=== PATIENT | female | born 1975 | race Caucasian/White ===

== ENCOUNTER 2017-06-02 07:37 | Day surgery (SDC) | payer MEDICAID ==
[2017-05-30 11:19] LABS: HEMATOCRIT 38.7 % (34.6-47.8); HEMOGLOBIN 12.9 g/dL (11.7-16.4); WHITE BLOOD COUNT 10.4 x10^3/uL (3.4-10)
[2017-05-30 11:30] LABS: BLOOD UREA NITROGEN 12 mg/dL (7-18)
[~2017-06-02] VITALS: Ht 172.7 cm; Wt 96.4 kg
[~2017-06-02 07:37] MED LIST: ASPI-496 PO; ATOR-2 PO; CALC200T3 PO; HYDR-3240 PO; LEVO100T5 PO; LISI5TAB7 PO; OMEG1CAP23 PO; OXYC5CAP2 PO; PENT400T2 PO; TRAM50TA2 PO
[2017-06-02] MEDS ORDERED: SODIUM CHLORIDE 0.9% 1,000 ML IV SCH (08:07)
[2017-06-02 08:28] VITALS: BP 138/74
[2017-06-02] MEDS ORDERED: CEFAZOLIN PMX 2GM/50ML 50 ML IVPB ONE (08:30)
[2017-06-02] MEDS ORDERED: PROTAMINE SULFATE 10 MG/ML, 25ML ONE (09:21)
[2017-06-02] MEDS ORDERED: MIDAZOLAM 1 MG/ML, 5ML ONE (09:21)
[2017-06-02] MEDS ORDERED: FENTANYL PF 100 MCG/2ML ONE (09:22)
[2017-06-02] MEDS ORDERED: FLUMAZENIL 0.1 MG/1 ML, 5ML ONE (09:22)
[2017-06-02] MEDS ORDERED: NITROGLYCERIN 5 MG/ML, 10ML ONE (09:22)
[2017-06-02] MEDS ORDERED: NALOXONE 1 MG/ML, 2ML ONE (09:22)
[2017-06-02] MEDS ORDERED: HEPARIN 1,000 UNITS/ML, 10ML ONE (09:22)
[2017-06-02] MEDS ORDERED: LIDOCAINE 2%, 20ML ONE (09:41)
[2017-06-02] MEDS ORDERED: VISIPAQUE 270 MG/ML, 150ML BOTTLE ONE (10:00)
== END 2017-06-02 13:10 ==
LOC: OUT 07:37
PROVIDERS: ATTEND Surgery
DX: I73.9 Peripheral vascular disease, unspecified (principal); I10 Essential (primary) hypertension; E78.5 Hyperlipidemia, unspecified; Z98.890 Other specified postprocedural states; Z87.891 Personal history of nicotine dependence
CPT/HCPCS: 36200; 36415; 75625; 75716; 76937; 80048; 85025; 99156; 99157; C1751; C1769; C1894; J2250; J3010; J3490; J7030; Q9966; 75630; J1644; J2720; J2310

== ENCOUNTER 2017-06-30 07:30 | Inpatient (IN) | payer MEDICAID ==
[2017-06-24 12:39] VITALS: BP 133/83
[~2017-06-30] VITALS: Ht 172.7 cm; Wt 105.5 kg
[2017-06-30] MEDS ORDERED: HEPARIN 1,000 UNITS/ML, 30ML ONE (09:03)
[2017-06-30] MEDS ORDERED: ALBUMIN HUMAN 5% 500 ML ONE (09:04)
[2017-06-30] MEDS ORDERED: LACTATED RINGERS 1,000 ML IV SCH (09:48)
[2017-06-30] MEDS ORDERED: BACITRACIN 50,000 UNIT ONE (10:02)
[2017-06-30] MEDS ORDERED: PROTAMINE SULFATE 10 MG/ML, 5ML ONE (10:02)
[2017-06-30] MEDS ORDERED: HEPARIN 1,000 UNITS/ML, 10ML ONE (10:02)
[2017-06-30] MEDS ORDERED: THROMBIN 20,000 UNIT VIAL TP ONE (10:02)
[2017-06-30] MEDS ORDERED: MIDAZOLAM 1 MG/ML, 2ML ONE (10:11)
[2017-06-30] MEDS ORDERED: FENTANYL PF 500 MCG/10ML ONE (10:11)
[2017-06-30 10:20] LABS: HCG UR OBC PASS
[2017-06-30] MEDS ORDERED: BUPIVACAINE/PF 0.25% ONE (10:27)
[2017-06-30] MEDS ORDERED: PROPOFOL 10 MG/ML, 20ML ONE (10:37)
[2017-06-30] MEDS ORDERED: PHENYLEPHRINE 10 MG/ML ONE (10:37)
[2017-06-30] MEDS ORDERED: ROCURONIUM 10 MG/ML ONE (10:37)
[2017-06-30] MEDS ORDERED: DEXAMETHASONE 4 MG/ML, 1ML ONE (10:37)
[2017-06-30] MEDS ORDERED: KETAMINE 10 MG/ML, 20ML ONE ×2 (10:37→11:12)
[2017-06-30] MEDS ORDERED: CEFAZOLIN 1,000 MG ONE (10:37)
[2017-06-30] MEDS ORDERED: NEOSTIGMINE 1 MG/ML, 10ML ONE (10:37)
[2017-06-30] MEDS ORDERED: ONDANSETRON 2MG/ML, 2ML ONE (10:37)
[2017-06-30] MEDS ORDERED: ONDANSETRON 2MG/ML, 2ML IVPush PRN (11:30)
[2017-06-30] MEDS ORDERED: MIDAZOLAM 1 MG/ML, 2ML IV PRN (11:30)
[2017-06-30] MEDS ORDERED: FENTANYL PF 100 MCG/2ML IV PRN (11:30)
[2017-06-30] MEDS ORDERED: ALBUTEROL SULFATE 2.5 MG/3 ML NPPB PRN (11:30)
[2017-06-30] MEDS ORDERED: PROMETHAZINE 25 MG/ML, 1ML IV PRN (11:30)
[2017-06-30] MEDS ORDERED: MEPERIDINE/PF 25MG/0.5ML IVPush PRN (11:30)
[2017-06-30] MEDS ORDERED: OXYcodone 5 MG/5 ML ORAL.SOL UDC PO PRN (11:30)
[2017-06-30] MEDS ORDERED: hydrALAzine 20 MG/ML, 1ML IV PRN ×2 (11:30→16:30)
[2017-06-30] MEDS ORDERED: ACETAMINOPHEN 325 MG TABLET PO PRN (11:30)
[2017-06-30] MEDS ORDERED: LABETALOL 5MG/ML, 20ML IV PRN (11:30)
[2017-06-30] MEDS ORDERED: FENTANYL PF 100 MCG/2ML ONE (12:37)
[2017-06-30] MEDS ORDERED: LABETALOL 5MG/ML, 20ML ONE (14:24)
[2017-06-30] MEDS: HYDROmorphone 1 MG/ML, 1ML IV PRN ×4 (14:28→15:15)
[2017-06-30] MEDS: LABETALOL 5MG/ML, 20ML IVPush PRN ×4 (14:30→15:03)
[2017-06-30] MEDS ORDERED: HYDROmorphone 2 MG/ML, 1ML ONE (14:30)
[2017-06-30] MEDS ORDERED: LABETALOL 5MG/ML, 20ML IVPush PRN (16:30)
[2017-06-30] MEDS ORDERED: ONDANSETRON 2MG/ML, 2ML IV PRN (16:30)
[2017-06-30] MEDS ORDERED: NITROPRUSSIDE 50 MG in SODIUM CHLORIDE 0.9% 248 ML IV PRN (16:30)
[2017-06-30] MEDS: D5%-LACTATED RINGERS 1,000 ML IV SCH (17:04)
[2017-06-30] MEDS: ENALAPRILAT 1.25 MG/ML, 2ML IV SCH (17:26)
[2017-06-30] MEDS: CEFAZOLIN PMX 2GM/100ML 100 ML IVPB SCH (19:31)
[2017-06-30] MEDS: ENOXAPARIN 40 MG/0.4 ML SQ SCH (20:59)
[2017-07-01] MEDS: ENALAPRILAT 1.25 MG/ML, 2ML IV SCH ×3 (00:17→15:52)
[2017-07-01] MEDS: D5%-LACTATED RINGERS 1,000 ML IV SCH ×2 (00:40→07:42)
[2017-07-01] MEDS: CEFAZOLIN PMX 2GM/100ML 100 ML IVPB SCH (03:26)
[2017-07-01 04:05] VITALS: BP 106/56
[2017-07-01 06:36] LABS: HEMOGLOBIN 10.5 g/dL (11.7-16.4); WHITE BLOOD COUNT 15.1 x10^3/uL (3.4-10)
[2017-07-01 06:47] LABS: BLOOD UREA NITROGEN 7 mg/dL (7-18)
[2017-07-01] MEDS: LACTATED RINGERS 1,000 ML IV SCH ×2 (11:34→18:29)
[2017-07-01] MEDS: INSULIN REGULAR, HUMAN 100 UNIT/ML 3ML VIAL SS SQ SCH ×2 (13:00→18:05)
[2017-07-01 15:14] VITALS: BP 96/57
[2017-07-01 20:17] VITALS: BP 101/57
[2017-07-01] MEDS: ENOXAPARIN 40 MG/0.4 ML SQ SCH (22:00)
[2017-07-02] MEDS: ENALAPRILAT 1.25 MG/ML, 2ML IV SCH ×3 (00:30→16:30)
[2017-07-02] MEDS: INSULIN REGULAR, HUMAN 100 UNIT/ML 3ML VIAL SS SQ SCH ×4 (01:00→18:25)
[2017-07-02 01:20] VITALS: BP 106/59
[2017-07-02] MEDS: LACTATED RINGERS 1,000 ML IV SCH ×3 (01:26→15:56)
[2017-07-02 05:44] LABS: HEMATOCRIT 29.4 % (34.6-47.8); HEMOGLOBIN 9.7 g/dL (11.7-16.4); WHITE BLOOD COUNT 12.4 x10^3/uL (3.4-10)
[2017-07-02 05:46] LABS: BLOOD UREA NITROGEN 7 mg/dL (7-18)
[2017-07-02 07:48] VITALS: BP 111/64
[2017-07-02 14:39] VITALS: BP 140/74
[2017-07-02 17:08] VITALS: BP 112/64
[2017-07-02 19:03] VITALS: BP 110/61
[2017-07-02] MEDS: ENOXAPARIN 40 MG/0.4 ML SQ SCH (21:53)
[2017-07-03 00:15] VITALS: BP 107/76
[2017-07-03] MEDS: ENALAPRILAT 1.25 MG/ML, 2ML IV SCH ×2 (00:30→08:29)
[2017-07-03] MEDS: LACTATED RINGERS 1,000 ML IV SCH ×3 (00:38→15:53)
[2017-07-03] MEDS: INSULIN REGULAR, HUMAN 100 UNIT/ML 3ML VIAL SS SQ SCH ×4 (01:00→19:00)
[2017-07-03 01:27] VITALS: BP 104/60
[2017-07-03 05:54] LABS: HEMATOCRIT 29.3 % (34.6-47.8); HEMOGLOBIN 9.8 g/dL (11.7-16.4); WHITE BLOOD COUNT 11.3 x10^3/uL (3.4-10)
[2017-07-03 06:05] LABS: BLOOD UREA NITROGEN 6 mg/dL (7-18)
[2017-07-03] MEDS: ASPIRIN 81 MG TABLET EC PO SCH (06:21)
[2017-07-03 08:28] VITALS: BP 119/71
[2017-07-03] MEDS: LISINOPRIL 5 MG TABLET PO SCH (14:00)
[2017-07-03] MEDS ORDERED: POTASSIUM CHLORIDE 20 MEQ TAB.ER.PRT PO ONE (14:00)
[2017-07-03 14:20] VITALS: BP 123/72
[2017-07-03 20:06] VITALS: BP 124/75
[2017-07-03] MEDS: SODIUM CHLORIDE FLUSH 3ML SYRINGE IVF SCH (20:31)
[2017-07-03] MEDS: ATORVASTATIN 80 MG TABLET PO SCH (20:42)
[2017-07-03] MEDS: SENNA/DOCUSATE TABLET PO SCH (20:44)
[2017-07-03] MEDS: ENOXAPARIN 40 MG/0.4 ML SQ SCH (20:44)
[2017-07-04] MEDS: INSULIN REGULAR, HUMAN 100 UNIT/ML 3ML VIAL SS SQ SCH ×4 (00:40→18:18)
[2017-07-04] MEDS: LACTATED RINGERS 1,000 ML IV SCH ×2 (00:40→09:30)
[2017-07-04 00:54] VITALS: BP 126/69
[2017-07-04] MEDS: ASPIRIN 81 MG TABLET EC PO SCH (06:42)
[2017-07-04] MEDS: LEVOTHYROXINE 100 MCG TABLET PO SCH (06:43)
[2017-07-04 07:10] VITALS: BP 129/75
[2017-07-04] MEDS: LISINOPRIL 5 MG TABLET PO SCH (09:00)
[2017-07-04] MEDS: SODIUM CHLORIDE FLUSH 3ML SYRINGE IVF SCH ×2 (09:00→21:23)
[2017-07-04 09:38] VITALS: BP 121/71
[2017-07-04] MEDS: SENNA/DOCUSATE TABLET PO SCH ×2 (09:39→21:23)
[2017-07-04 14:16] VITALS: BP 125/76
[2017-07-04 18:53] VITALS: BP 127/76
[2017-07-04] MEDS: HYDROcodone/APAP 5/325 TABLET PO PRN ×2 (19:38→22:33)
[2017-07-04] MEDS: ATORVASTATIN 80 MG TABLET PO SCH (21:22)
[2017-07-04] MEDS: ENOXAPARIN 40 MG/0.4 ML SQ SCH (21:22)
[2017-07-05] MEDS ORDERED: HYDR-3240 PO (01:51)
[2017-07-05] MEDS ORDERED: PERICOLACE PO (01:55)
[2017-07-05 01:59] VITALS: BP 120/76
[2017-07-05] MEDS: HYDROcodone/APAP 5/325 TABLET PO PRN ×3 (04:02→11:58)
[2017-07-05] MEDS: LEVOTHYROXINE 100 MCG TABLET PO SCH (06:36)
[2017-07-05] MEDS: ASPIRIN 81 MG TABLET EC PO SCH (06:36)
[2017-07-05] MEDS: SENNA/DOCUSATE TABLET PO SCH ×2 (08:09→08:10)
[2017-07-05] MEDS: SODIUM CHLORIDE FLUSH 3ML SYRINGE IVF SCH (08:09)
[2017-07-05 08:14] VITALS: BP 127/80
[2017-07-05] MEDS: LISINOPRIL 5 MG TABLET PO SCH (08:16)
== END 2017-07-05 12:15 | disposition home or self-care (01) | DRG 272 ==
LOC: ORIP 09:07 → CCU 16:04 → 4NOR 07-01 14:58
PROVIDERS: ADMIT Surgery; ATTEND Surgery
PROC: 04100JK Bypass Abdominal Aorta to Bilateral Femoral Arteries with Synthetic Substitute, Open Approach (ICD-10-PCS; principal; 2017-06-30 11:00)
DX: I74.09 Other arterial embolism and thrombosis of abdominal aorta (principal); I10 Essential (primary) hypertension; E78.5 Hyperlipidemia, unspecified; I73.9 Peripheral vascular disease, unspecified; K43.2 Incisional hernia without obstruction or gangrene; Z86.73 Personal history of transient ischemic attack (TIA), and cerebral infarction without residual deficits; Z87.891 Personal history of nicotine dependence; I70.213 Atherosclerosis of native arteries of extremities with intermittent claudication, bilateral legs
CPT/HCPCS: 36415; 71010; 80048; 81025; 82330; 82803; 82947; 82962; 84132; 84295; 85014; 85025; 86850; 86900; 87081; 93005; C1768; J0690; J1100; J1170; J1644; J1650; J2250; J2270; J2405; J2704; J2710; J2720; J3010; J3490; P9045; C1765; J2370; J7120; J7121

== ENCOUNTER → 2017-10-02 | Outpatient (CLI) | payer MEDICAID ==
[~2017-10-02] MED LIST changes: +PERICOLACE PO
== END | disposition home or self-care (01) ==
LOC: CVU 07:41
PROVIDERS: ATTEND Surgery
DX: I70.213 Atherosclerosis of native arteries of extremities with intermittent claudication, bilateral legs (principal); I74.09 Other arterial embolism and thrombosis of abdominal aorta
CPT/HCPCS: 93922; 93925

== ENCOUNTER → 2017-10-15 | Outpatient (CLI) | payer MEDICAID ==
[~2017-10-15] MED LIST changes: +OMNIPAQUE 350 MG/ML, 150 ML BOTTLE ONE
== END ==
LOC: RAD 13:35
PROVIDERS: ATTEND Surgery
DX: I74.5 Embolism and thrombosis of iliac artery (principal)
CPT/HCPCS: 75635; Q9967

== ENCOUNTER → 2019-11-02 | Outpatient (CLI) | payer MEDICAID ==
[~2019-11-02] MED LIST changes: +OMNIPAQUE 350 MG/ML, 100ML BOTTLE ONE; -OMNIPAQUE 350 MG/ML, 150 ML BOTTLE ONE; +PENT400T12 PO; -PENT400T2 PO
== END | disposition home or self-care (01) ==
LOC: CFH 13:55
PROVIDERS: ATTEND Psychiatry & Neurology Neurology
DX: I63.233 Cerebral infarction due to unspecified occlusion or stenosis of bilateral carotid arteries (principal)
CPT/HCPCS: 70496; 70498; 82565; Q9967

== ENCOUNTER → 2021-05-17 | Outpatient (CLI) | payer MEDICAID, OTHER ==
[~2021-05-17] MED LIST changes: +HYDR-2214 PO; -HYDR-3240 PO; -OMNIPAQUE 350 MG/ML, 100ML BOTTLE ONE
== END | disposition home or self-care (01) ==
LOC: CFH 15:48
PROVIDERS: ATTEND Nurse Practitioner Family
DX: G93.89 Other specified disorders of brain (principal); G31.84 Mild cognitive impairment of uncertain or unknown etiology; G45.9 Transient cerebral ischemic attack, unspecified; I10 Essential (primary) hypertension; R20.2 Paresthesia of skin
CPT/HCPCS: 70551